=== PATIENT | male | born 1945 | race Two or more races ===

== ENCOUNTER 2020-03-15 07:19 | Day surgery (SDC) | payer OTHER ==
[~2020-03-15 07:19] MED LIST: ATORVASTATIN CA40 MG PO; ESCITALOPRA5 MG/5 ML PO; FINASTERIDE5 MG PO; FORTAMET1000 MG PO; HYDROCHLOROTHIA25 MG PO; JANUVIA100 MG PO; LANTUS; MELATONIN10 M5 PO; PEPCID AC20 MG PO; PLAVIX75 MG PO; SUPER B-50 COM1 EACH PO; TAMS0.4C PO; VITAMIN D PO; [UNRECOGNIZED DRUG - OTHER] PO
[2020-03-15] MEDS ORDERED: PERCOCET 5-3251 EACH PO (13:16)
== END 2020-03-15 17:40 | disposition home or self-care (01) ==
LOC: CIR.AMB 07:19
PROVIDERS: ATTEND Surgery
DX: C20 Malignant neoplasm of rectum (principal); Z20.828 Contact with and (suspected) exposure to other viral communicable diseases
CPT/HCPCS: 36561; C1751

== ENCOUNTER 2020-07-08 07:30 | Day surgery (SDC) | payer OTHER ==
[~2020-07-08 07:30] MED LIST changes: +PERCOCET 5-3251 EACH PO
== END 2020-07-08 11:45 | disposition home or self-care (01) ==
LOC: AMB-ENDOS 07:30
PROVIDERS: ATTEND Surgery
DX: D12.2 Benign neoplasm of ascending colon (principal); Z20.828 Contact with and (suspected) exposure to other viral communicable diseases

== ENCOUNTER 2020-08-06 08:30 | Inpatient (IN) | payer OTHER ==
[~2020-08-06] VITALS: Ht 160 cm; Wt 63.5 kg
[2020-08-13] MEDS ORDERED: VITAMIN B-121000 MCG (14:00)
[2020-08-13] MEDS ORDERED: FOLIC ACID1 MG (14:00)
[2020-08-13] MEDS ORDERED: RIVASTIGMINE1 EACH (14:00)
[2020-08-13] MEDS ORDERED: AMLODIPINE-BEN1 EAC3 (14:00)
[2020-08-13] MEDS ORDERED: SEMGLEE100 UNIT/1 (14:00)
[2020-08-13] MEDS ORDERED: NORVASC2.5 M1 (14:02)
[2020-08-13] MEDS ORDERED: VITAMIN D310 MC1 (14:02)
[2020-08-17] MEDS ORDERED: PERCOCET 5-3251 EACH PO (10:24)
[2020-08-17] MEDS ORDERED: TAMS0.4C PO (10:24)
[2020-08-17] MEDS ORDERED: HYOSCYAMINE0.125 M1 SL (10:24)
[2020-08-17] MEDS ORDERED: INTESTINEX680 M1 PO (10:25)
== END 2020-08-17 13:55 | disposition home or self-care (01) | DRG 331 ==
LOC: O/R 08-13 07:00 → SURH 08-13 08:30 → SURG 08-14 16:58
PROVIDERS: ADMIT Surgery; ATTEND Surgery
PROC: 07BC4ZZ Excision of Pelvis Lymphatic, Percutaneous Endoscopic Approach (ICD-10-PCS; 2020-08-13)
PROC: 0D1B4Z4 Bypass Ileum to Cutaneous, Percutaneous Endoscopic Approach (ICD-10-PCS; 2020-08-13)
PROC: 0DJD8ZZ Inspection of Lower Intestinal Tract, Via Natural or Artificial Opening Endoscopic (ICD-10-PCS; 2020-08-13)
PROC: 0DBP4ZZ Excision of Rectum, Percutaneous Endoscopic Approach (ICD-10-PCS; principal; 2020-08-13 13:30)
PROC: 0DBN4ZZ Excision of Sigmoid Colon, Percutaneous Endoscopic Approach (ICD-10-PCS; 2020-08-13 13:30)
DX: C19 Malignant neoplasm of rectosigmoid junction (principal)

== ENCOUNTER 2020-08-21 22:09 | Inpatient (IN) | payer OTHER ==
[~2020-08-21] VITALS: Ht 160 cm; Wt 63.5 kg
[~2020-08-21 22:09] MED LIST changes: +AMLODIPINE-BEN1 EAC3; +FOLIC ACID1 MG; +HYOSCYAMINE0.125 M1 SL; +INTESTINEX680 M1 PO; +NORVASC2.5 M1; +RIVASTIGMINE1 EACH; +SEMGLEE100 UNIT/1; +VITAMIN B-121000 MCG; +VITAMIN D310 MC1
== END 2020-08-25 13:42 | disposition home or self-care (01) | DRG 389 ==
LOC: ER 22:09 → SEC-K 08-22 08:14 → MEDI 08-22 08:14
PROVIDERS: ADMIT Surgery; ATTEND Surgery
DX: K56.600 Partial intestinal obstruction, unspecified as to cause (principal); C20 Malignant neoplasm of rectum; R33.9 Retention of urine, unspecified; R11.10 Vomiting, unspecified; Z93.2 Ileostomy status; I11.9 Hypertensive heart disease without heart failure; I25.10 Atherosclerotic heart disease of native coronary artery without angina pectoris; E11.9 Type 2 diabetes mellitus without complications; Z20.822 Contact with and (suspected) exposure to COVID-19

== ENCOUNTER 2021-09-11 07:42 | Outpatient (CLI) | payer OTHER | END 2021-09-11 07:51 | disposition home or self-care (01) | LOC: RX STUDY 07:42 | PROVIDERS: ATTEND Surgery | DX: C20 Malignant neoplasm of rectum (principal); R59.0 Localized enlarged lymph nodes; K62.5 Hemorrhage of anus and rectum; Z13.9 Encounter for screening, unspecified ==

== ENCOUNTER 2022-09-01 09:28 | Inpatient (IN) | payer OTHER ==
[~2022-09-01] VITALS: Ht 160 cm; Wt 64.9 kg
[2022-09-01] MEDS ORDERED: COZAAR25 MG PO (11:18)
[2022-09-01] MEDS ORDERED: JANUVIA100 MG PO (11:18)
[2022-09-04] MEDS ORDERED: ST. JOSEPH ASPI81 M2 (09:48)
[2022-09-04] MEDS ORDERED: AMLODIPINE BESYL5 MG (09:48)
[2022-09-04] MEDS ORDERED: RIVASTIGMINE1 EAC1 (09:48)
[2022-09-04] MEDS ORDERED: INTESTINEX680 M1 (09:49)
[2022-09-09] MEDS ORDERED: INTESTINEX680 M1 PO (08:04)
[2022-09-09] MEDS ORDERED: PAIN RELIEVER500 MG PO (08:04)
== END 2022-09-09 15:21 | disposition home or self-care (01) | DRG 330 ==
LOC: O/R 09-04 07:25 → SURH 09-04 09:45
PROVIDERS: ADMIT Surgery; ATTEND Surgery
PROC: 3E0F7SF Introduction of Other Gas into Respiratory Tract, Via Natural or Artificial Opening (ICD-10-PCS; 2022-09-04)
PROC: 4A12X4Z Monitoring of Cardiac Electrical Activity, External Approach (ICD-10-PCS; 2022-09-04)
PROC: 0DQB4ZZ Repair Ileum, Percutaneous Endoscopic Approach (ICD-10-PCS; principal; 2022-09-04 14:45)
PROC: 0D9670Z Drainage of Stomach with Drainage Device, Via Natural or Artificial Opening (ICD-10-PCS; 2022-09-05)
PROC: 3E0G76Z Introduction of Nutritional Substance into Upper GI, Via Natural or Artificial Opening (ICD-10-PCS; 2022-09-05)
PROC: 0TPBX0Z Removal of Drainage Device from Bladder, External Approach (ICD-10-PCS; 2022-09-05)
PROC: 0T9B70Z Drainage of Bladder with Drainage Device, Via Natural or Artificial Opening (ICD-10-PCS; 2022-09-06)
PROC: 0T9B70Z Drainage of Bladder with Drainage Device, Via Natural or Artificial Opening (ICD-10-PCS; 2022-09-09)
DX: Z43.2 Encounter for attention to ileostomy (principal); C20 Malignant neoplasm of rectum; K62.5 Hemorrhage of anus and rectum; L72.0 Epidermal cyst; K91.0 Vomiting following gastrointestinal surgery; R14.0 Abdominal distension (gaseous); N40.1 Benign prostatic hyperplasia with lower urinary tract symptoms; R33.8 Other retention of urine; E11.9 Type 2 diabetes mellitus without complications; I10 Essential (primary) hypertension; Z79.4 Long term (current) use of insulin

== ENCOUNTER 2023-05-21 07:36 | Day surgery (SDC) | payer OTHER ==
[~2023-05-21 07:36] MED LIST changes: +AMLODIPINE BESYL5 MG; +COZAAR25 MG PO; +INTESTINEX680 M1; +PAIN RELIEVER500 MG PO; +RIVASTIGMINE1 EAC1; +ST. JOSEPH ASPI81 M2
[2023-05-21] MEDS ORDERED: TRAM1TAB98 PO (11:37)
== END 2023-05-21 15:10 | disposition home or self-care (01) ==
LOC: CIR.AMB 07:36
PROVIDERS: ATTEND Surgery
DX: C20 Malignant neoplasm of rectum (principal); K62.5 Hemorrhage of anus and rectum; I10 Essential (primary) hypertension; Z20.822 Contact with and (suspected) exposure to COVID-19

== ENCOUNTER 2023-07-13 04:12 | Emergency (ER) | payer OTHER ==
[~2023-07-13] VITALS: Ht 160 cm; Wt 63.5 kg
[~2023-07-13 04:12] MED LIST changes: +TRAM1TAB98 PO
[2023-07-13] MEDS ORDERED: CITALOPRAM20 MG/10 M (04:21)
[2023-07-13] MEDS ORDERED: LANTUS SOL100 UNIT/1 (04:22)
[2023-07-13] MEDS ORDERED: LIPITOR40 M1 (04:25)
[2023-07-13 08:35] LABS: HEMATOCRIT 38.8 % (39.0-48.0); HEMOGLOBIN 13.1 g/dL (13-16.00); MEAN CELL VOLUME 87.1 fL (80.0-100.00); MEAN CORPUSCULAR HEMOGLOBIN 29.4 pg (27.00-32.0); MEAN CORPUSCULAR HGB CONC 33.8 g/dl (32.0-36.0); PLATELET COUNT 170 K/uL (150-450); RED BLOOD COUNT 4.46 M/uL (4.00-6.00); RED CELL DISTRIBUTION WIDTH 13.6 % (11.5-14.5)
[2023-07-13 08:59] LABS: ALBUMIN 3.7 gm/dL (3.4-5.0); BILIRUBIN TOTAL 0.74 mg/dL (0.3-1.2); CALCIUM 8.9 mg/dL (8.5-10.1); GFR 72.08; GLOBULINA 3.2 G/DL (2.4-3.5); POTASSIUM 4.14 mEq/L (3.5-5.1); TOTAL PROTEIN 6.9 gm/dL (6.4-8.2)
[2023-07-13 09:08] LABS: INR 1.01; PARTIAL THROMBOPLASTIN TIME 22.9 SECONDS (22.0-34.0); PROTHROMBIN TIME 10.6 SECONDS (9.0-11.5)
== END 2023-07-13 18:02 | disposition home or self-care (01) ==
LOC: ER 04:14
DX: K52.9 Noninfective gastroenteritis and colitis, unspecified (principal); I10 Essential (primary) hypertension; Z85.9 Personal history of malignant neoplasm, unspecified
CPT/HCPCS: 36415; 74019; 74176; 96365; 96372; 99284; J1885; J2250; J2405; J3490